=== PATIENT | male | born 1990 | race Caucasian/White ===

== ENCOUNTER 2017-03-26 14:51 | Emergency (ER) | payer OTHER ==
[2017-03-26] MEDS ORDERED: ZOFRAN ONE (15:13)
[2017-03-26] MEDS ORDERED: DILAUDID ONE ×2 (15:14→18:55)
[2017-03-26] MEDS ORDERED: DILAUDID IV ONE (15:18)
[2017-03-26] MEDS ORDERED: ZOFRAN IV ONE (15:19)
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
[2017-03-26] MEDS ORDERED: BOOSTRIX IM ONE (16:24)
[2017-03-26] MEDS ORDERED: NACL 0.9% 1000 ML 1,000 ML IV ONE (16:24)
[2017-03-26 17:07] LABS: Basophils % (Auto) 0.3 % (0.0-1.8); Eosinophils % (Auto) 0.2 % (0.0-4.3); Hematocrit 47.4 % (35.5-45.6); Hemoglobin 16.3 gm/dl (11.8-15.2); Mean Corpuscular HGB Conc 34 % (32-34); Mean Corpuscular Hemoglobin 26 pg (28-32); Mean Corpuscular Volume 75 fl (84-94); Platelet Count 193 K/mm3 (140-440); Red Cell Distribution Width 13.2 % (13.2-15.2); White Blood Count 12.3 K/mm3 (4.5-11.0)
[2017-03-26 17:18] LABS: Partial Thromboplastin Time 24.2 Sec. (24.2-36.6)
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
[2017-03-26 17:28] LABS: Creatine Kinase MB 1.9 ng/mL (0.0-4.0)
[2017-03-26 17:29] LABS: Alanine Aminotransferase 28 units/L (7-56); Albumin 4.4 g/dL (3.9-5); Albumin/Globulin Ratio 1.4 %; Alkaline Phosphatase 130 units/L (35-129); BUN/Creatinine Ratio 7.77; Blood Urea Nitrogen 7 mg/dL (9-20); Calcium 9.3 mg/dL (8.4-10.2); Carbon Dioxide 23 mmol/L (22-30); Creatine Kinase 183 units/L (55-170); Glucose 420 mg/dL (75-100); Total Protein 7.5 g/dL (6.3-8.2)
[2017-03-26 17:30] LABS: Anion Gap 22 mmol/L; Bilirubin,Direct < 0.2 mg/dL (0-0.2); Chloride 96.6 mmol/L (98-107); Potassium 4.1 mmol/L (3.6-5.0); Sodium 137 mmol/L (137-145)
[2017-03-26] MEDS ORDERED: ceFAZolin 2 GM in NACL 0.9% 100 ML IV ONE (17:30)
[2017-03-26 18:03] LABS: Ketones Negative (Negative)
[2017-03-26 20:02] VITALS: BP 114/61
--- NOTE | 2017-03-27 08:07 | XRay Report ---
AP CHEST : 03/26/17 14:51:00 CLINICAL: Hypertension. COMPARISON:None FINDINGS: Normal heart and pulmonary vessels. The lungs are normally expanded and clear. The bones and soft tissues are unremarkable. IMPRESSION: Normal chest.
== END 2017-03-26 19:30 | disposition home or self-care (01) ==
LOC: ED 14:51
DX: S71.102A Unspecified open wound, left thigh, initial encounter (principal); E10.65 Type 1 diabetes mellitus with hyperglycemia; F12.10 Cannabis abuse, uncomplicated; Z79.4 Long term (current) use of insulin; W34.00XA Accidental discharge from unspecified firearms or gun, initial encounter; Y93.89 Activity, other specified; Y92.89 Other specified places as the place of occurrence of the external cause; Y99.8 Other external cause status
CPT/HCPCS: 36415; 71010; 73552; 80048; 80074; 82010; 82550; 82553; 82962; 83880; 85025; 85610; 85730; 90471; 90715; 93005; 93010; 96365; 96366; 96375; 99284; J0690; J1170; J2405; J7030; J1815